=== PATIENT | female | born 2000 | race African-American/Black ===

== ENCOUNTER 2021-02-28 08:38 | Emergency (ER) | payer MEDICAID ==
[2021-02-28 10:43] LABS: Bilirubin Negative (Negative); Blood, Urine Negative (Negative); Clarity Clear (Clear); Glucose, Urine (Dipstick) Normal (Negative); Ketone, Urine Negative (Negative); Leukocyte Negative Leu/uL (Negative); Nitrite Negative (Negative); Protein, Urine (Dipstick) 10 mg/dL (Neg-Trace); Specific Gravity, Urine 1.017 (1.002-1.036); Urobilinogen Normal mg/dL (Less than 2)
== END 2021-02-28 11:25 | disposition home or self-care (01) ==
LOC: ERS 08:38
DX: U07.1 COVID-19 (principal); Z79.82 Long term (current) use of aspirin
CPT/HCPCS: 81003; 99284